=== PATIENT | female | born 1995 | race Two or more races ===

== ENCOUNTER 2019-05-03 07:44 | Emergency (ER) | payer OTHER ==
[~2019-05-03] VITALS: Ht 165.1 cm; Wt 54.4 kg
== END 2019-05-03 10:08 | disposition home or self-care (01) ==
LOC: ER 07:44 → EDBD 07:44 → ER 08:07
DX: S01.422A Laceration with foreign body of left cheek and temporomandibular area, initial encounter (principal); W54.0XXA Bitten by dog, initial encounter; Y93.89 Activity, other specified; Y92.89 Other specified places as the place of occurrence of the external cause; Y99.8 Other external cause status

== ENCOUNTER → 2019-05-09 | Emergency (ER) | payer OTHER | END | disposition left against medical advice (07) | LOC: ER 13:17 | DX: Z53.20 Procedure and treatment not carried out because of patient's decision for unspecified reasons (principal) ==